=== PATIENT | male | born 1985 | race Caucasian/White ===

== ENCOUNTER → 2020-06-17 17:02 | Outpatient (CLI) | payer OTHER, SELFPAY ==
--- NOTE | 2020-06-17 17:08 | RAD_ITS ---
STUDY: X-RAY - CERVICAL SPINE REASON FOR EXAM: Male, 34 years old. Neck pain, no known injury. TECHNIQUE: 5 view(s) of the cervical spine were obtained including oblique views. COMPARISON: None FINDINGS: Normal anterior atlantoaxial articulation. Normal odontoid process. There is straightening of the normal cervical lordosis. Normal vertebral bodies and endplates. Normal disc space heights. Normal visualized intervertebral neuroforamina. The soft tissue structures are unremarkable. RAD/Cerv Spine 4 or 5 Views IMPRESSION: There is straightening of the normal cervical lordosis. Electronically Signed: Jude Denton, at 8:46 EST , Service support ,
== END ==
PROVIDERS: PCP Family Medicine; Referring Provider Family Medicine; Visit Provider Family Medicine
DX: M54.2 Cervicalgia (principal)
CPT/HCPCS: 72050

== ENCOUNTER 2020-07-22 06:59 | Outpatient (RCR) | payer OTHER, SELFPAY ==
--- NOTE | 2020-07-22 08:00 | HP.PTEVAL ---
Patient's Visit Information CLAUDIA ANSARI is a 34 year old M referred to Physical Therapy by Dr. Boris Ocasio MD with a diagnosis of R UT strain. Date of Evaluation: 07/22/20 Physical Therapist: Abner Manzo DPT - Visit Plan Frequency: 1x/Week Duration: 4 Weeks Plan: I gave claudia some UT and levator scap stretching. He is also to work on cervical retraction and from SNAG cervical stretching at home. He will try this for a week or two and see how well he can reduce his symptoms. Pt. to follow up with PT as needed. - Subjective Pt. is here today for his initial evaluation with diagnosis of R UT strain. Pt. reports having increased R side of neck pain intermittently for upto a year. He reports increased pain that starts in his neck that radiates up to his head and down to his shoulders. Denies N/T. No mech of injury and symptoms seem to be spontaneous. Pt. reports increased symptoms with sleeping and he believes that this may be the cause. He reports no Ue weakness. Recently mostly desk work, which may also correlate with increased is symptoms. Pt.work at a [employer]. - Pain R UT region Pain Intensity (Out of 10): 0 Pain Intensity Range: 3 - Objective POSTURE: Pt. has slight FH posture. rouded shoulders. PALPATION: Pt. is tender through his R UT, R levator scapulea and R suboccipital region. No pain in shoulder G/H joint it self. NEURO: Pt. has normal sensation and normal DTR of BUEs. No N/T noted. No radicular symptoms noted. ROM: B shoulder ROM, normal without increase in symptoms. CERVICAL SPINE: Normal ROM, except for min loss with retraction and with extension. Mild increase in symptoms with L SB (stretch felt). MMT: 5/5 throughout BUEs no pain associated. - Special Tests C/S Radiculapathy - Left Upper limb tension test: Negative C/S Radiculapathy - Right Upper limb tension test: Negative C/S Radiculapathy - Left Spurlings: Negative C/S Radiculapathy - Right Spurlings: Negative C/S Radiculapathy - Left Cervical distraction: Negative C/S Radiculapathy - Right Cervical distraction: Negative C/S Radiculapathy - Left Relief test: Negative C/S Radiculapathy - Right Relief test: Negative C/S Radiculapathy - Valsalva: Negative Sharp Azael: Negative Vertebral Artery Test: Negative Alar Ligament Test: Negative Cervical Sitting: Protrusion - Mechanical Response: No effect Cervical Sitting: Protrusion - Symptoms During Testing: No effect Cervical Sitting: Protrusion - Symptoms After Testing: No effect Cervical Sitting: Retraction - Mechanical Response: No effect Cervical Sitting: Retraction - Symptoms During Testing: Decreases Cervical Sitting: Retraction - Symptoms After Testing: Better Cervical Sitting: Retraction-Extension - Mechanical Response: No effect Cerv Sitting: Retraction-Extension - Symptoms During Testing: Decreases Cerv Sitting: Retraction-Extension - Symptoms After Testing: Better Cervical Sitting: Sidebend Right - Mechanical Response: No effect Cervical Sitting: Sidebend Right - Symptoms During Testing: No effect Cervical Sitting: Sidebend Right - Symptoms After Testing: No effect Cervical Sitting: Sidebend Left - Mechanical Response: No effect Cervical Sitting: Sidebend Left - Symptoms During Testing: No effect Cervical Sitting: Sidebend Left - Symptoms After Testing: No effect Cervical Sitting: Rotation Right - Mechanical Response: No effect Cervical Sitting: Rotation Right - Symptoms During Testing: No effect Cervical Sitting: Rotation Right - Symptoms After Testing: No effect Cervical Sitting: Rotation Left - Mechanical Response: No effect Cervical Sitting: Rotation Left - Symptoms During Testing: No effect Cervical Sitting: Rotation Left - Symptoms After Testing: No effect Cervical Sitting: Flexion - Mechanical Response: No effect Cervical Sitting: Flexion - Symptoms During Testing: No effect Cervical Sitting: Flexion - Symptoms After Testing: No effect - Goals Goal 1:: LTG: Pt. to be I with HEP. Goal Time Frame: 4-6 Weeks Goal 2:: STG: pt. to have improved cervical ROM into extension and retraction to full motion. Goal Time Frame: 2-4 Weeks Goal 3:: LTG: Pt. to demonstrate improved cervical/thoracic posture in clinic, demonstrating improved postureal awareness. Goal Time Frame: 4-6 Weeks Goal 4:: STG: Pt. to have decreased RUT pain episodes to x1 per week. Goal Time Frame: 2 Weeks Goal 5:: LTG: Pt. to report no longer having any R UT pain with all sleep and work related activies. - Rehabilitation Potential Physical Therapy Diagnosis: Pt. has signs and symptoms consistent with R UT strain. Pt. and no radicular pathology and no radiating pain. He has some stiffness of his cervical spine and some pain to palpation of his UT and levator scapulea. Pt. would benefit from postural training, R UT inhibition and stretching. Rehabilitation Potential: Excellent - Anticipated Interventions Patient/Client Instruction: Educate patient on: Condition, Plan of Care, Risk Factors, Benefits of Fitness Program For the Purpose of:: To facilitate caregiver knowledge, To improve self management, To prevent re-injury, To improve ability to perform tasks related to life management, To improve tolerance to ADL's Therapeutic Exercise to Include: Strength training, Power training, Postural training, Flexibilty training, Passive ROM, Active ROM, Aman Exercises, Scapular Strength/Stabilization For the Purpose of:: To decrease pain, To decrease swelling/inflammation, To increase ROM, To improve nutrient delivery to tissue, To increase oxygenation perfusion, To improve muscle performance and motor function, To improve ability to perform ADL's Thank you for the opportunity to evaluate your patient. For Medicare and Medicare HMO plans, please review the plan of care and approve it. It will need to be FAXED BACK to us at [phone] for Medicare purposes. For Medicare only, by signing this I certify the plan of care. Please let me know if there are questions or concerns regarding this plan of care. Physician Signature: Date:
--- NOTE | 2020-12-20 17:31 | HP.PTDCNRP_ITS ---
DARIEN ANSARI was seen in my office for initial evaluation on 07/22/20. The following Plan of Care was established for this patient: Initial Frequency: 1x/Week Initial Duration: 4 Weeks Patient/Client Instruction: Educate patient on: Condition, Plan of Care, Risk Factors, Benefits of Fitness Program For the Purpose of:: To facilitate caregiver knowledge, To improve self management, To prevent re-injury, To improve ability to perform tasks related to life management, To improve tolerance to ADL's Therapeutic Exercise to Include: Strength training, Power training, Postural training, Flexibilty training, Passive ROM, Active ROM, Aman Exercises, Sca pular Strength/Stabilization For the Purpose of:: To decrease pain, To decrease swelling/inflammation, To increase ROM, To improve nutrient delivery to tissue, To increase oxygenation perfusion, To improve muscle performance and motor function, To improve ability to perform ADL's This patient was last seen in our office 07/22/20. Pertinent comments regarding their Physical therapy will appear below: Pt. was seen in PT for 1 evaluation of R UT strain. I gave him some exercises to work on to assist with reducing symptoms. I also gave him some ergonomic thania hniques to reduce stress to his neck. Pt. desired to complete independently and follow up with PT if needed. Pt. has not been seen in several months and will be DC from PT at this point in time. At this point I will be discontinuing this patient from physical therapy. I would be happy to see this patient again in the future if found appropriate by the physician. Thank you! FEROZ VillaseñorT
== END 2020-07-22 19:00 | disposition home or self-care (01) ==
LOC: PT 06:59
PROVIDERS: PCP Family Medicine; Referring Provider Family Medicine; Visit Provider Family Medicine
DX: S46.811D Strain of other muscles, fascia and tendons at shoulder and upper arm level, right arm, subsequent encounter (principal)
CPT/HCPCS: 97161

== ENCOUNTER → 2020-09-28 12:57 | Outpatient (CLI) | payer OTHER, SELFPAY ==
[2020-09-28 16:02] LABS: Free T3 3.4 pg/mL (2.18-3.98); T4 Free Direct 0.95 ng/dL (0.76-1.46); Thyroid Stim Hormone (TSH) 2.83 uIU/mL (0.358-3.74)
== END ==
PROVIDERS: PCP Family Medicine; Referring Provider Family Medicine; Visit Provider Family Medicine
DX: E04.1 Nontoxic single thyroid nodule (principal)
CPT/HCPCS: 36415; 84439; 84443; 84481

== ENCOUNTER → 2020-09-30 13:56 | Outpatient (CLI) | payer OTHER, SELFPAY ==
--- NOTE | 2020-09-30 13:59 | US_ITS ---
STUDY: THYROID ULTRASOUND REASON FOR EXAM: Male, 34 years old. Nodule TECHNIQUE: Ultrasound evaluation of the thyroid was performed with real-time and static bedolla-scale imaging. COMPARISON: None. FINDINGS: RIGHT LOBE: The right lobe of the thyroid gland measures 4.7 x 1.5 x 1.6 cm. There is a homogeneous echotexture. There are no demonstrated solid, cystic or complex lesions. LEFT LOBE: The left lobe of the thyroid gland measures 5.0 x 1.5 x 1.4 cm. There is a homogeneous echotexture. There are no demonstrated solid, cystic or complex lesions. ISTHMUS: The isthmus measures 0.3 cm. The regional lymph nodes are normal. US/Thyroid IMPRESSION: Enlarged thyroid gland with no associated discrete nodules. Electronically Signed: Venus Callaway MD at 16:05 EDT Tel , Service support ,
== END ==
PROVIDERS: PCP Family Medicine; Referring Provider Family Medicine; Visit Provider Family Medicine
DX: E04.1 Nontoxic single thyroid nodule (principal)
CPT/HCPCS: 76536

== ENCOUNTER → 2023-08-10 | Outpatient (CLI) | payer OTHER, SELFPAY ==
--- NOTE | 2023-08-10 11:27 | RAD_ITS ---
STUDY: X-RAY CHEST REASON FOR EXAM: Male, 37 years old. walking pneumonia TECHNIQUE: Single frontal view of the chest. COMPARISON: None. FINDINGS: The lungs are clear and expanded. There is no demonstrated pleural abnormality. Normal size heart. Normal mediastinum and justice. Normal visualized pulmonary arteries. Normal visualized aortic arch and descending thoracic aorta. Normal visualized thoracic spine. Normal visualized ribs, clavicles, and shoulders. There is no demonstrated abnormality of the visualized soft tissue structures of the upper abdomen. RAD/Chest PA and Lateral IMPRESSION: Normal x-ray examination of the chest. Electronically Signed: Julio Rodriguez MD at 20:14 EST ,
== END | disposition home or self-care (01) ==
LOC: MTLAB 11:12 → MTRAD 11:25
PROVIDERS: PCP Family Medicine; Referring Provider Family Medicine; Visit Provider Family Medicine
DX: J18.9 Pneumonia, unspecified organism (principal)
CPT/HCPCS: 71046

== ENCOUNTER → 2023-12-03 | Outpatient (CLI) | payer OTHER, SELFPAY ==
--- NOTE | 2023-12-03 13:50 | RAD_ITS ---
STUDY: X-RAY CHEST REASON FOR EXAM: Male, 38 years old. Left-sided chest pain. Recent pneumonia. TECHNIQUE: Frontal and lateral views of the chest. COMPARISON: August 10, 2023 FINDINGS: Mild hyperinflation. There is no demonstrated pleural abnormality. Normal size heart. Normal mediastinum and justice. Normal visualized pulmonary arteries. Normal visualized aortic arch and descending thoracic aorta. Normal visualized thoracic spine. Normal visualized ribs, clavicles, and shoulders. No abnormality of the visualized soft tissue structures of the upper abdomen. RAD/Chest PA and Lateral IMPRESSION: Hyperinflation with no acute or active cardiopulmonary disease. Electronically Signed: Mumtaz Hills MD at 14:21 EDT ,
== END | disposition home or self-care (01) ==
LOC: MTRAD 13:50
PROVIDERS: PCP Family Medicine; Referring Provider Family Medicine; Visit Provider Family Medicine
DX: R07.89 Other chest pain (principal)
CPT/HCPCS: 71046

== ENCOUNTER → 2024-05-23 | Outpatient (CLI) | payer OTHER, SELFPAY ==
[2024-05-23 15:15] LABS: Absolute Lymphocyte Count 2.44 X10^3/uL (0.83-4.51); Absolute Neutrophil Count 4.2 X10^3/uL (2.0-7.7); Basophil# 0.09 X10^3/uL; Basophil% 1.2 % (0-1); Eosinophil# 0.22 X10^3/uL; Eosinophils% 2.9 % (0-5); Hematocrit 47.8 % (40-54); Hemoglobin 15.9 g/dL (13.0-16.5); Lymphocyte # 2.44 X10^3/ul (0.83-4.51); Lymphocyte % 32.7 % (19-41); Mean Corp Hgb Conc 33.3 g/dL (32-36); Mean Corpuscular Hgb 28.3 pg (27.0-32.0); Mean Corpuscular Volume 85.2 fL (80-94); Mean Platelet Vol. 8.3 fl (6.2-12.0); Monocyte# 0.45 X10^3/uL; NRBC Flagged by Analyzer 0 % (0-5); Neutrophil % 56.3 % (47-70); Platelet Count 347 K/mm3 (150-450); RBC Distribution Width CV 12.1 % (11.6-14.6); RBC Distribution Width SD 37.6 fl (35.1-43.9); Red Blood Count 5.61 M/mm3 (4.6-6.2); White Blood Count 7.5 K/mm3 (4.4-11.0)
== END | disposition home or self-care (01) ==
LOC: MTLAB 12:40
PROVIDERS: PCP Family Medicine
DX: J18.9 Pneumonia, unspecified organism (principal)
CPT/HCPCS: 36415; 71046; 85025

== ENCOUNTER → 2024-09-04 | Outpatient (CLI) | payer OTHER, SELFPAY ==
--- NOTE | 2024-09-04 13:17 | RAD_ITS ---
PROCEDURE: HAND MIN 3 VIEWS REASON FOR EXAM: 3rd and 4th digit pain following injury. TECHNIQUE: 3 view(s) of the right hand COMPARISON: None. FINDINGS: No visible fracture. No suspicious bone lesion. Normal alignment. Soft tissues are unremarkable. RAD/Hand Min 3 Views IMPRESSION: NEGATIVE HAND SERIES Reading Location: [id number]
== END | disposition home or self-care (01) ==
LOC: MTRAD 13:16
PROVIDERS: PCP Family Medicine; Referring Provider Family Medicine; Visit Provider Family Medicine
DX: S63.611A Unspecified sprain of left index finger, initial encounter (principal); X58.XXXA Exposure to other specified factors, initial encounter
CPT/HCPCS: 73130

== ENCOUNTER 2024-10-23 07:30 | Outpatient (RCR) | payer OTHER, SELFPAY ==
--- NOTE | 2024-10-07 08:26 | HP.OTEVAL_ITS ---
Patient's Visit Information Visit Information Visit Information: DARIEN ANSARI is a 38 year old M, referred to Occupational Therapy by NIGHAT Goyal, with a diagnosis of strain right RF. Date of Evaluation: 10/07/24 Occupational Therapist: MERCY Montoya/Ekaterina, CHT Subjective Subjective: This 38 year old male was seen for OT eval with dx of right sprain interphalangeal joint of right RF, continues. pt states this fall was about 3-4 weeks ago yesterday he was doing more with his hand and had issues with pain later in the day- pt states limited ROM and pain are limiting him with work and daily occupations. pt would like to know what he can do to decrease pain and improve his ROM. Pain right hand: Current Pain Intensity: 0 Pain Intensity Range: 0 and 4 ROM Wrist: right 70/75 left 65/65 MP: right RF PIP: right RF -10/95 left +10/100 DIP: right RF 0/35 left 0/60 ROM Comments: pt demo with start of boutonni?re deformity Strength Health Administrator: right 50# left 105# Lateral Pinch: right 24# left 26# Tripod Pinch: right 24# left 24# Edema PIP: right RF 7 left 6.5 Quick DASH-Disab of Arm,Shoulder& Hand Quick DASH Score: 15.0000 Goals Goal:ROM equal to unaffected hand: Yes Goal:Health Administrator/Pinch strength at least 75% of unaffected hand: Yes Goal:No pain with affected hand use: Yes Goal:PIP Circumferences equal to unaffected hand: Yes Goal:Full use of affected hand in daily activities including work: Yes Rehabilitation General Assessment: pt demo with a decrease in right RF ROM and painful use of right hand with daily tasks. pt would benefit from skilled OT services 1x week for 4-6 weeks to return pt to his [facility]. Rehabilitation Potential: Good Anticipated Interventions Anticipated Interventions: A/AAROM/PROM, Strengthening, Edema Control, Triggerpoint Release, Modalities, Orthoses, Joint Protection/Energy Conservation, Ergonomic Education, Education re assistive Equipment, Education re Diagnosis and Home Program Visit Plan Frequency: Every Other Week Duration: 6 Weeks General Plan: initiate edema control ROM may need orthosis TEXT: Thank you for the opportunity to evaluate your patient. For Medicare and Medicare HMO plans, please review the plan of care and approve it. It will need to be FAXED BACK to us at [phone] for Medicare purposes. Please let me know if there are questions or concerns regarding this plan of care. Physician Signature: Date:
--- NOTE | 2025-02-11 14:48 | HP.OT.NRP ---
Patient Information Patient Information: DARIEN ANSARI was seen in my office for initial evaluation on 10/07/24. The following Plan of Care was established for this patient: POC Established Initial Frequency: Every Other Week Initial Duration: 6 Weeks Anticipated Interventions Anticipated Interventions: A/AAROM/PROM, Strengthening, Edema Control, Triggerpoint Release, Modalities, Orthoses, Joint Protection/Energy Conservation, Ergonomic Education, Education re assistive Equipment, Education re Diagnosis and Home Program Last Seen Last Seen: This patient was last seen in our office 10/23/24. Pertinent comments regarding their Occupational therapy will appear below: no further apts have been scheduled and due to time lapse in services pt is d/c. At this point I will be discontinuing this patient from occupational therapy. I would be happy to see this patient again in the future if found appropriate by the physician. Thank you! Ariadne Saenz, OTR/L, CHT
== END 2024-10-23 19:00 | disposition home or self-care (01) ==
LOC: OT 07:30
PROVIDERS: PCP Family Medicine
DX: S63.634D Sprain of interphalangeal joint of right ring finger, subsequent encounter (principal); S60.041D Contusion of right ring finger without damage to nail, subsequent encounter
CPT/HCPCS: 97110; 97166

== ENCOUNTER → 2024-12-04 | Outpatient (CLI) | payer OTHER, SELFPAY ==
--- NOTE | 2024-12-04 11:47 | RAD_ITS ---
PROCEDURE: CHEST PA AND LATERAL 12/04/2024 REASON FOR EXAM: COUGH AND MID BACK PAIN TECHNIQUE: Frontal and lateral views of the chest. 2 frontal images to include the entire chest, 3 total images COMPARISON: None available FINDINGS: The lungs appear clear. No pleural effusion. The cardiac and mediastinal contours appear within limits. Visualized osseous structures appear within limits. RAD/Chest PA and Lateral IMPRESSION: No evidence of acute disease. Reading Location: [id number]
[2024-12-04 15:32] LABS: Absolute Lymphocyte Count 2.14 X10^3/uL (0.83-4.51); Absolute Neutrophil Count 2.8 X10^3/uL (2.0-7.7); Basophil# 0.06 X10^3/uL; Basophil% 1.1 % (0-1); Eosinophil# 0.06 X10^3/uL; Eosinophils% 1.1 % (0-5); Hematocrit 47.9 % (40-54); Hemoglobin 16.4 g/dL (13.0-16.5); Lymphocyte # 2.14 X10^3/ul (0.83-4.51); Lymphocyte % 37.5 % (19-41); Mean Corp Hgb Conc 34.2 g/dL (32-36); Mean Corpuscular Hgb 29.7 pg (27.0-32.0); Mean Corpuscular Volume 86.8 fL (80-94); Mean Platelet Vol. 8.9 fl (6.2-12.0); Monocyte# 0.62 X10^3/uL; Monocyte% 10.9 % (0-10); NRBC Flagged by Analyzer 0 % (0-5); Neutrophil # 2.81 X10^3/uL (2.7-7.7); Neutrophil % 49.2 % (47-70); Platelet Count 268 K/mm3 (150-450); RBC Distribution Width CV 12.8 % (11.6-14.6); RBC Distribution Width SD 40.6 fl (35.1-43.9); Red Blood Count 5.52 M/mm3 (4.6-6.2); White Blood Count 5.7 K/mm3 (4.4-11.0)
[2024-12-04 15:58] LABS: Erythrocyte Sedimentation Rate < 1 mm/hr (0-20)
[2024-12-04 18:12] LABS: ALB/GLOB Ratio 1.9 RATIO (0.9-2.4); AST(SGOT) 31 U/L (<=37); Alanine Aminotransfer ALT/SGPT 48 U/L (<=46); Albumin, Serum 4.8 g/dL (3.5-5.0); Alkaline Phosphatase 49 U/L (40-129); Anion Gap 12 (5-15); BUN 15 mg/dL (4-19); BUN/Creat Ratio 14.4 RATIO (10-20); Calcium,Total 10.1 mg/dL (7.6-11.0); Carbon Dioxide 25.3 mmol/L (21.0-32.0); Chloride 101 mmol/L (98-108); Creatinine, Serum 1.01 mg/dL (0.70-1.20); EST Glomerular Filtration Rate 97 (>60); Globulin 2.5 g/dL (2.2-4.2); Glucose 91 mg/dL (70-99); Protein, Total 7.3 g/dL (5.9-8.4); Sodium Level 139 mmol/L (133-145); Total Bilirubin 0.79 mg/dL (0.00-1.30)
== END | disposition home or self-care (01) ==
LOC: MTLAB 11:45
PROVIDERS: PCP Family Medicine; Referring Provider Family Medicine; Visit Provider Family Medicine
DX: M54.50 Low back pain, unspecified (principal); R05.9 Cough, unspecified; J39.9 Disease of upper respiratory tract, unspecified
CPT/HCPCS: 36415; 71046; 80053; 85025; 85652